=== PATIENT | female | born 2000 | race Caucasian/White ===

== ENCOUNTER 2021-05-15 20:11 | Emergency (ER) | payer OTHER ==
[~2021-05-15] VITALS: Ht 165.1 cm; Wt 56.7 kg
[2021-05-15] MEDS ORDERED: BIRTH CONTROL PO (20:27)
[2021-05-15 21:15] VITALS: BP 104/74
== END 2021-05-15 21:17 | disposition home or self-care (01) ==
LOC: M.ERS 20:11
DX: M25.572 Pain in left ankle and joints of left foot (principal); G40.909 Epilepsy, unspecified, not intractable, without status epilepticus; K21.9 Gastro-esophageal reflux disease without esophagitis; F32.9 Major depressive disorder, single episode, unspecified; Z79.899 Other long term (current) drug therapy; Z88.8 Allergy status to other drugs, medicaments and biological substances; Z88.0 Allergy status to penicillin; Z88.2 Allergy status to sulfonamides; W22.8XXA Striking against or struck by other objects, initial encounter; Y93.89 Activity, other specified; Y92.89 Other specified places as the place of occurrence of the external cause; Y99.8 Other external cause status